=== PATIENT | female | born 1995 | race Caucasian/White ===

== ENCOUNTER 2020-05-06 12:19 | Emergency (ER) | payer OTHER ==
[2020-05-06 14:28] LABS: BUN/CREATININE RATIO 14 (0-10); HEMOGLOBIN 11.5 gm/dl (12.3-15.3); RED BLOOD COUNT 3.29 M/UL (4.00-5.10); WHITE BLOOD COUNT 8.7 K/UL (4.5-11.0)
== END 2020-05-06 15:47 | disposition home or self-care (01) ==
LOC: ER1 12:19
PROVIDERS: Emergency Medicine
DX: O99.891 Other specified diseases and conditions complicating pregnancy (principal); R07.89 Other chest pain; R00.2 Palpitations; Z3A.17 17 weeks gestation of pregnancy
CPT/HCPCS: 71045; 80053; 82550; 82553; 83874; 83880; 84439; 84443; 84484; 85025; 85379; 93005; 99285

== ENCOUNTER → 2020-06-15 | Outpatient (CLI) | payer OTHER | LOC: ECHO 08:38 | DX: I49.3 Ventricular premature depolarization (principal); Z86.79 Personal history of other diseases of the circulatory system | CPT/HCPCS: ECHO; 93306 ==

== ENCOUNTER 2020-10-10 01:28 | Inpatient (IN) | payer SELFPAY ==
[~2020-10-10] VITALS: Ht 162.6 cm; Wt 67.1 kg
[2020-10-10 02:09] LABS: HEMOGLOBIN 10.7 gm/dl (12.3-15.3); RED BLOOD COUNT 3.06 M/UL (4.00-5.10); WHITE BLOOD COUNT 9.9 K/UL (4.5-11.0)
[2020-10-10] MEDS ORDERED: HEMOCYTE-F TAB1 EACH PO (03:16)
[2020-10-10] MEDS ORDERED: IBUPROFEN800 MG PO (03:16)
[2020-10-10] MEDS ORDERED: COLACE100 MG PO (03:16)
[2020-10-11 05:10] LABS: HEMOGLOBIN 8.7 gm/dl (12.3-15.3)
== END 2020-10-11 17:11 | disposition home or self-care (01) | DRG 805 ==
LOC: GENOP 01:28 → OB 02:18
PROVIDERS: ADMIT Obstetrics & Gynecology
PROC: 10E0XZZ Delivery of Products of Conception, External Approach (ICD-10-PCS; principal; 2020-10-10)
PROC: 0KQM0ZZ Repair Perineum Muscle, Open Approach (ICD-10-PCS; 2020-10-10)
DX: O99.13 Other diseases of the blood and blood-forming organs and certain disorders involving the immune mechanism complicating the puerperium (principal); U07.1 COVID-19; Z37.0 Single live birth; O98.52 Other viral diseases complicating childbirth; D62 Acute posthemorrhagic anemia; O99.344 Other mental disorders complicating childbirth; O70.1 Second degree perineal laceration during delivery; F32.9 Major depressive disorder, single episode, unspecified; F41.9 Anxiety disorder, unspecified; Z82.49 Family history of ischemic heart disease and other diseases of the circulatory system; Z82.0 Family history of epilepsy and other diseases of the nervous system; Z3A.39 39 weeks gestation of pregnancy
CPT/HCPCS: 36415; 85014; 85018; 85025; 90715; J0690